=== PATIENT | male | born 1975 | race Caucasian/White ===

== ENCOUNTER 2024-12-07 09:51 | Emergency (ER) | payer MEDICARE, SELFPAY ==
--- NOTE | 2024-12-07 09:57 | PC.NURSE ---
dr muller at bedside
[2024-12-07 09:58] VITALS: BP 139/91; PULSE 89; RESP 13; TEMP 36.7; O2SAT 96; BMI 32.2
--- NOTE | 2024-12-07 10:03 | XR_ITS ---
FINAL REPORT CLINICAL HISTORY: COPD exacerbation, shortness of breath FINDINGS: PA and lateral views of the chest are obtained. There is no prior exam for comparison. The cardiac and mediastinal silhouettes are within normal limits. There is bronchial wall thickening suggesting acute bronchitis. The lungs are otherwise clear. There is no pleural effusion, pneumothorax, or acute osseous abnormality. IMPRESSION: Bronchial wall thickening suggesting acute bronchitis. Reviewed, Interpreted and Dictated by Henny Allen MD Transcribed by Iveth Bernard Authenticated and [facility]
--- NOTE | 2024-12-07 10:05 | HMH.EDGENADL ---
Discharge Plan Disposition Patient Disposition: Home, Self-Care Prescriptions Prescriptions: New ipratropium-albuterol 0.5 mg-3 mg(2.5 mg base)/3 mL solution for nebulization 3 ml inhalation Q4H PRN (Reason: shortness of breath) Qty: 180 2RF Rx Instructions: until breathing returns to target peak flow/parameters prednisone 20 mg tablet 40 mg PO DAILY 5 Days Qty: 10 0RF nicotine 14 mg/24 hr patch 24 hour 1 patch transdermal DAILY Qty: 28 0RF doxycycline monohydrate 100 mg capsule 100 mg PO BID 5 Days Qty: 10 0RF (DME) nebulizer and compressor Device See Rx Instructions .Route Qty: 1 0RF Rx Instructions: As directed (DME) nebulizer and compressor Device See Rx Instructions .Route Qty: 1 0RF Rx Instructions: As directed No Action rosuvastatin [Crestor] 20 mg tablet 20 mg PO DAILY Qty: 30 2RF aspirin [Adult Aspirin Regimen] 81 mg tablet,delayed release (DR/EC) 81 mg PO DAILY Qty: 30 2RF losartan 100 mg tablet 100 mg PO DAILY Qty: 30 2RF albuterol sulfate 90 mcg/actuation HFA aerosol inhaler 2 puff inhalation Q4-6H PRN (Reason: shortness of breath or wheezing) Qty: 8.5 0RF Referrals Follow up/Referrals: Barbara Dawn APRN [Primary Care Provider] - See instructions Activity Restrictions/Add. Instructions Additional Instructions/Restrictions: Call your family doctor to establish care for this visit to the emergency department and schedule follow-up within 48 hours to ensure improvement. If you have any worsening of your condition or any other concerning signs or symptoms, return to the emergency department or your primary care doctor for further evaluation. Clinical Impressions Clinical Impression: Acute exacerbation of chronic obstructive pulmonary disease, Right upper lobe pneumonia Print Language Print Language: Latvian Discharge ED Provider: Iván Sood General Adult HPI General Chief complaint: Upper Respiratory Infection Stated complaint: flu expsoure ba vomiting st Time Seen by Provider: 12/07/24 09:56 Mode of Arrival: Ambulatory Source of Information: Patient Limitations: No Limitations Description of Symptoms (Recalled from ER Triage Doc. by RN): pt presents to ED with c/o not feeling well . pt reports he had flu exposure by his son. pt reports body aches, nausea, vomitting. symptoms began day before yesterday. History of Present Illness HPI narrative: Please note that above description of symptoms, in this electronic medical record under categorization of recalled from ER triage doctor by RN are reflective of an initial nursing assessment, however, is not reflective of my full history and physical exam that was personally taken and clarified. Consequentially, this preceding description of symptoms, which may include the patient's categorized chief complaint in the EMR, do not reflect my personal clinical impression, and the ultimate description of history of present illness and patient stated complaints should be deferred to this section of the note. Unless stated otherwise or congruent with this section of the note, additional signs, symptoms, or incongruence should be interpreted as inaccurate with my clinical impression. Related Data Previous Rx's ?Medication ?Instructions ?Recorded albuterol sulfate 90 mcg/actuation 2 puff inhalation Q4-6H PRN 11/14/24 aerosol inhaler shortness of breath or wheezing #8.5 grams aspirin 81 mg tablet,delayed 81 mg PO DAILY #30 tabs 11/26/24 release (Adult Aspirin Regimen) losartan 100 mg tablet 100 mg PO DAILY #30 tabs 11/26/24 rosuvastatin 20 mg tablet (Crestor) 20 mg PO DAILY #30 tabs 11/26/24 doxycycline monohydrate 100 mg 100 mg PO BID 5 days #10 caps 12/07/24 capsule ipratropium 0.5 mg-albuterol 3 mg 3 ml inhalation Q4H PRN shortness 12/07/24 (2.5 mg base)/3 mL nebulization of breath #180 mL soln nebulizer and compressor #1 ea 12/07/24 nebulizer and compressor #1 ea 12/07/24 nicotine 14 mg/24 hr daily 1 patch transdermal DAILY #28 ea 12/07/24 transdermal patch prednisone 20 mg tablet 40 mg (2 x 20 mg) PO DAILY 5 days 12/07/24 #10 tabs Allergies Allergy/AdvReac Type Severity Reaction Status Date / Time No Known Allergies Allergy Verified 12/07/24 10:04 [facility] Disclaimer: The information contained in this section may have been updated after the patient was seen, as this information can be updated by other users. Medical History Anxiety with depression Family history of early CAD Chest pain Recurrent kidney stones Hypertension Epilepsy COPD (chronic obstructive pulmonary disease) Family History Other Coronary artery disease Diabetes Hypertension Social History Smoking Status: Current every day smoker tobacco type: cigarettes alcohol intake: never substance use type: marijuana current occupational status: disabled Travel in the last 8 weeks: None Have you lived/traveled outside US in past 30 days?: No Contact w/someone who lives/traveled outside US past 30 days?: No Exposure to someone with infectious disease in past 14 days?: Yes Do you have a fever (greater than 100.4 F or 38 C)?: No Have you tested positive for COVID-19: No Exposed to someone with COVID-19 in past 14 days?: No Do you have a sore throat?: Yes Do you have a cough?: Yes Do you have any weakness?: No Do you have any diarrhea?: No Are you experiencing any unusual bleeding?: No Do you have any muscle aches/pain?: No Do you have any abdominal pain?: No Are you experiencing loss of taste or smell?: No ROS Obtained: Yes All systems reviewed & no additional complaints except as documented Physical Exam General General appearance: alert Head Head exam: atraumatic and normocephalic Eye Eye exam: Present normal appearance, PERRL and EOMI Neck Neck exam: Present trachea midline Chest Chest inspection: Present normal inspection and symmetric chest wall rise Respiratory Respiratory exam: Present wheezes; Absent respiratory distress, stridor, accessory muscle use or prolonged expiratory phase Cardiovascular Cardiovascular exam: Present regular rate, normal rhythm and other (Pulses equal and symmetric in upper and lower extremities) Abdominal Exam Abdominal exam: Present soft; Absent distention, tenderness or pulsatile mass Extremities Exam Extremities exam: Absent edema Neurological Exam Neurological exam: Present alert, oriented X3 and CN II-XII intact Skin Skin exam: Present warm and dry; Absent cyanosis, diaphoresis or pallor Medical Decision Making Medical Records Medical records reviewed: Yes I reviewed the patient's medical records. Screening: Per USPSTF and CDC recommendations, given the prevalence of disease in our region, it is our hospital?s policy to screen for HIV and viral Hepatitis for all patients aged 18 and over and those with ongoing risk factors. [place] Inquiry Pt receiving controlled substance: No [place] was queried for this patient: No Vital Signs: 12/07/24 09:58 12/07/24 10:15 Temperature 98.0 F Temperature Source Oral Pulse Rate 69 Pulse Rate [Left Radial] 89 Respiratory Rate 13 Blood Pressure 128/84 Blood Pressure [Right Arm] 139/91 H Blood Pressure Mean [Right Arm] 107 02 Sat by Pulse Oximetry 96 99 Oxygen Delivery Method Room Air Orders (Tests/Meds): ED MEDICATIONS Discontinued Medications Generic Name Dose Route Start Last Admin Trade Name Danica PRN Reason Stop Dose Admin Albuterol/Ipratropium 9 ml 12/07/24 10:03 12/07/24 10:07 Ipratropium/Albuterol 3 Ml Neb IH 12/07/24 10:04 9 ml ONCE ONE Administration Dexamethasone 10 mg 12/07/24 10:03 12/07/24 10:07 Dexamethasone 4mg Tablet PO 12/07/24 10:04 10 mg ONCE ONE Administration Doxycycline Hyclate 100 mg 12/07/24 10:03 12/07/24 10:06 Doxycycline Hycl 100 Mg Tablet PO 12/07/24 10:04 100 mg ONCE ONE Administration ORDERS Category Date Time Status CXR 2 view (NOT portable) [XR chest 2V] Stat Exams 12/07/24 10:03 Taken Medical Decision Narrative: 49-year-old male with history of COPD still smoking about a pack a day presenting with shortness of breath and cough. Patient states that he has been getting worse for about 2 days. Started feeling short of breath, now having new cough and the cough is newly productive of greenish-yellow sputum. No fevers or chills, no bodyaches, but mild shortness of breath. No chest pain. No lower extremity swelling. Otherwise feeling well. Does not have inhalers or nebulizer machines at home. Came in for further evaluation. History was obtained via conversation with patient and significant other. On arrival, patient hemodynamically stable, alert, oriented x4, appropriate, GCS 15, moving all extremities spontaneously, pupils equal and reactive to light. Full physical exam performed and significant for very clinically well-appearing male speaking in full sentences and in no acute distress. Lungs with diffuse bilateral wheezes heard throughout expiration. Cardiac exam normal, no lower extremity edema. No focal wheezes or inspiratory sounds. Differential includes COPD exacerbation, bronchitis, pneumonia, pneumothorax, less likely PE, ACS, CO, CHF among others,. Patient placed on continuous cardiac monitoring and continuous pulse ox with initial blood pressure 139/91, heart rate 89, saturation 96% on room air. Patient was given DuoNebs, Decadron for symptomatic management and correction of underlying abnormalities. Workup independently interpreted and significant for right upper lobe pneumonia with developing. Labs considered, but patient feeling much better on reevaluation and feels okay being discharged. No increased work of breathing on my evaluation and lungs sound remarkably better. Smoking cessation discussion was had, patient voiced his understanding and would like to have patches sent to the pharmacy. Given patient presentation, workup, history, this most likely represents COPD exacerbation in the setting of pneumonia. 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 Because patient at baseline without signs or symptoms of clinical decompensation, deemed appropriate for discharge. Results were relayed to patient who voiced understanding and were agreeable to outpatient management and follow up. I discussed my clinical impression with patient and answered all questions. At this time, the evidence for any other entities in the differential is insufficient to warrant any further testing or ED observation. This was explained as well. Advisory was given that persistent or worsening symptoms require further evaluation. I confirmed the understanding of this discussion. Industrial Maintenance Manager disclaimer Much of this encounter note is an electronic software sales manager spoken language to printed text. Electronic software sales manager of the spoken language may permit errors. Although I have reviewed the note, some errors may still exist. Procedures Smoking Cessation Time Spent Discussing Smoking Cessation w/Patient (min): 10 Patient Acknowledges Need for Cessation: Yes Critical Care Critical Care Time Critical Care Time: No
[2024-12-07] MEDS: DOXYCYCLINE HYCL 100 MG TABLET PO (10:06)
[2024-12-07] MEDS: DEXAMETHASONE 4MG TABLET 10 MG PO (10:07)
[2024-12-07] MEDS: IPRATROPIUM/ALBUTEROL 3 ML NEB 9 ML IH (10:07)
[2024-12-07 10:15] VITALS: BP 128/84; PULSE 69; O2SAT 99
[2024-12-07 11:30] VITALS: BP 149/87; PULSE 88; RESP 18; TEMP 36.7; O2SAT 95
== END 2024-12-07 11:30 | disposition home or self-care (01) ==
PROVIDERS: Emergency Provider Emergency Medicine; PCP Nurse Practitioner
DX: J44.1 Chronic obstructive pulmonary disease with (acute) exacerbation (principal); J18.9 Pneumonia, unspecified organism; R06.02 Shortness of breath; R05.9 Cough, unspecified; R11.2 Nausea with vomiting, unspecified; M79.10 Myalgia, unspecified site; F17.210 Nicotine dependence, cigarettes, uncomplicated; Z20.828 Contact with and (suspected) exposure to other viral communicable diseases
CPT/HCPCS: 71046; 99284; J7620; J8540

== ENCOUNTER 2024-12-11 18:10 | Outpatient (CLI) | payer MEDICARE, SELFPAY ==
[2024-12-11 18:18] LABS: Basophils % 0.5 % (0.1-2.0); Eosinophils % 0.2 % (0.1-12.0); Hemoglobin 17.8 g/dL (14.1-18.0); Lymphocytes # 2.4 K/mm3 (0.7-4.5); Lymphocytes % 42.6 % (10-50); Mean Corpuscular HGB Conc 34.2 g/dL (31.8-35.4); Mean Corpuscular Hemoglobin 30.9 pg (27.0-31.2); Mean Corpuscular Volume 90.3 fl (80-94); Mean Platelet Volume 10.9 fl (7.4-10.4); Monocytes # 0.5 K/mm3 (0.1-1.0); Monocytes % 7.9 % (1.7-9.3); Neutrophils # 2.8 K/mm3 (1.8-7.8); Neutrophils % 48.5 % (37.0-80.0); Platelet Count 235 K/mm3 (142-424); Red Blood Count 5.76 M/mm3 (4.60-6.20); Red Cell Distribution Width 12.9 % (11.5-17.5); White Blood Count 5.7 K/mm3 (4.8-10.8)
[2024-12-11 18:35] LABS: Microalbumin/Creatinine Ratio 17.3
[2024-12-11 18:38] LABS: Creatinine,Urine Random 308 mg/dL (Not Estab.)
[2024-12-11 18:43] LABS: Hemoglobin A1C 4.8 % (4.0-6.0)
[2024-12-11 18:49] LABS: Alanine Aminotransferase 30 U/L (12-78); Albumin Level 3.7 g/dl (3.5-5.0); Albumin/Globulin Ratio 1.6 (1.1-1.8); Alkaline Phosphatase 91 U/L (38-126); Aspartate Amino Transferase 28 U/L (17-59); Bilirubin,Total 0.4 mg/dl (0.2-1.3); Blood Urea Nitrogen 12 mg/dl (9-20); Calcium 9.1 mg/dl (8.4-10.2); Carbon Dioxide 31 mmol/L (22.0-30.0); Chloride 107 mmol/L (98-107); Chol/HDL Ratio 3.9 (1-3.5); Cholesterol 109 mg/dl (140-200); Estimated Glomerular Filt Rate 90 ml/min (>60); GFR (African American) 109 ML/MIN (>60); Globulin 2.3 g/dL (1.3-3.2); Glucose 93 mg/dl (74-100); HDL Cholesterol 28 mg/dl (40-60); Sodium 138 mmol/L (136-145); Triglycerides 105 mg/dl (30-150); VLDL Cholesterol 21 mg/dL (0-40)
[2024-12-11 19:01] LABS: Direct LDL Cholesterol 50.53 mg/dL (100-129)
[2024-12-11 19:21] LABS: Prostate Specific Ag Screen 0.9 ng/ml (0.0-4.0); Thyroid Stimulating Hormone 1.04 uIU/mL (0.465-4.68)
[2024-12-11 19:40] LABS: Vitamin B12 704 pg/mL (239-931)
== END 2024-12-11 23:59 | disposition home or self-care (01) ==
LOC: LAB.DROPOF 18:11
PROVIDERS: Nurse Practitioner; PCP Nurse Practitioner Acute Care; Visit Provider Nurse Practitioner Acute Care
DX: I10 Essential (primary) hypertension (principal); R07.9 Chest pain, unspecified; G40.909 Epilepsy, unspecified, not intractable, without status epilepticus; F41.8 Other specified anxiety disorders
CPT/HCPCS: 80053; 80061; 82043; 82570; 82607; 83036; 84443; 85025; G0103

== ENCOUNTER 2024-12-15 18:50 | Emergency (ER) | payer MEDICARE, SELFPAY ==
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
[2024-12-15 19:01] VITALS: BP 144/99; PULSE 85; RESP 20; TEMP 37.2; O2SAT 98; BMI 31.6
--- NOTE | 2024-12-15 19:15 | PC.NURSE ---
Pt awake alert and oriented Skin pink warm and dry Resp full and easy Speech clear and appropriate Report given to Yuly GOMEZ
--- NOTE | 2024-12-15 19:17 | PC.NURSE ---
rounded on pt at this time. s/o at bedside. no needs voiced. call light in reach
[2024-12-15] MEDS: LIDOCAINE 1% 20ML MDV 20 ML IJ (19:34)
[2024-12-15] MEDS: BUPIVACAINE 0.25% 10ML INJ 5 MG IJ (19:34)
[2024-12-15 20:02] VITALS: BP 120/89; PULSE 74; RESP 18; TEMP 37.2; O2SAT 95
== END 2024-12-15 20:03 | disposition home or self-care (01) ==
PROVIDERS: Emergency Provider Student in an Organized Health Care Education/Training Program; PCP Nurse Practitioner
DX: K08.89 Other specified disorders of teeth and supporting structures (principal)
CPT/HCPCS: 64400; 99283

== ENCOUNTER 2024-12-23 08:15 | Emergency (ER) | payer MEDICARE, SELFPAY ==
[2024-12-23] VITALS (7 sets, daily range): BP systolic 128–192; BP diastolic 85–114; PULSE 55–86; RESP 12–21; TEMP 36.6–37.1; O2SAT 96–98; BMI 31.7
--- NOTE | 2024-12-23 08:13 | ECG_ITS ---
APPROVED REPORT Exam: Resting ECG HR:69 bpm ECG Measurements Heart Rate 69 AXES DC 139 P 54 QRSd 105 QRS -36 QT 366 T 52 QTc 385 Conclusion SINUS RHYTHM LEFT AXIS DEVIATION [QRS AXIS < -30] PATTERN CONSISTENT WITH PULMONARY DISEASE Electronically signed by : KEELY WALSH, 12/23/2024 15:05:30
[2024-12-23 08:30] LABS: Basophils # 0.1 K/mm3 (0-0.2); Basophils % 0.5 % (0.1-2.0); Eosinophils # 0.1 K/mm3 (0.0-0.4); Eosinophils % 0.9 % (0.1-12.0); Hematocrit 48.5 % (42.0-52.0); Hemoglobin 16.5 g/dL (14.1-18.0); Lymphocytes # 2.2 K/mm3 (0.7-4.5); Lymphocytes % 21.4 % (10-50); Mean Corpuscular Hemoglobin 30.6 pg (27.0-31.2); Mean Corpuscular Volume 89.8 fl (80-94); Mean Platelet Volume 10.3 fl (7.4-10.4); Monocytes # 0.7 K/mm3 (0.1-1.0); Monocytes % 6.4 % (1.7-9.3); Neutrophils # 7.2 K/mm3 (1.8-7.8); Neutrophils % 70.7 % (37.0-80.0); Platelet Count 286 K/mm3 (142-424); Red Cell Distribution Width 12.8 % (11.5-17.5); White Blood Count 10.2 K/mm3 (4.8-10.8)
--- NOTE | 2024-12-23 08:32 | PC.NURSE ---
dr guerrier at bedside
[2024-12-23] MEDS: ASPIRIN 81MG CHEWABLE TABLET 243 MG PO (08:33)
--- NOTE | 2024-12-23 08:36 | CT_ITS ---
PROCEDURE INFORMATION: Exam: CTA Chest With Contrast Exam date and time: 12/23/2024 7:56 AM Age: 49 years old Clinical indication: Pain; Radiating; Additional info: Chest pain TECHNIQUE: Imaging protocol: Computed tomographic angiography of the chest with contrast. Exam focused on the arteries. 3D rendering (Not supervised by radiologist): MIP and/or 3D reconstructed images were created by the technologist. Radiation optimization: All CT scans at this facility use at least one of these dose optimization techniques: automated exposure control; mA and/or kV adjustment per patient size (includes targeted exams where dose is matched to clinical indication); or iterative reconstruction. Contrast material: ISOVUE; Contrast volume: 70 ml; Contrast route: INTRAVENOUS (IV); COMPARISON: CR XR CHEST 2V 12/07/2024 10:28 AM FINDINGS: Pulmonary arteries: No visible pulmonary emboli. Aorta: The thoracic aorta is normal. Lungs: No pulmonary infiltrates or suspicious pulmonary nodules identified. Pleural spaces: Unremarkable. No pneumothorax. No pleural effusion. Heart: The heart is normal in size. No pericardial effusion. Coronary arteries: Mild calcified coronary artery disease. Lymph nodes: Small mediastinal lymph nodes which do not reach pathologic size criteria. Liver: Simple appearing 2.6 cm hepatic cyst. Gallbladder and biliary ducts: Cholelithiasis but no suggestion of cholecystitis. Bones/joints: Unremarkable. No acute fracture. Soft tissues: Unremarkable. IMPRESSION: 1. No evidence of PE and the thoracic aorta is normal. 2. No acute pulmonary infiltrates or suspicious pulmonary nodules identified. 3. Cholelithiasis but no CT evidence of cholecystitis.
[2024-12-23 08:37] LABS: Alanine Aminotransferase 19 U/L (12-78); Albumin Level 4.1 g/dl (3.5-5.0); Albumin/Globulin Ratio 1.5 (1.1-1.8); Alkaline Phosphatase 87 U/L (38-126); Aspartate Amino Transferase 25 U/L (17-59); Bilirubin,Total 0.2 mg/dl (0.2-1.3); Blood Urea Nitrogen 9 mg/dl (9-20); Calcium 9.3 mg/dl (8.4-10.2); Carbon Dioxide 31 mmol/L (22.0-30.0); Chloride 107 mmol/L (98-107); Creatinine Clearance Estimated 121 mL/min (50-200); Estimated Glomerular Filt Rate 80 ml/min (>60); GFR (African American) 97 ML/MIN (>60); Globulin 2.7 g/dL (1.3-3.2); Glucose 114 mg/dl (74-100); Sodium 143 mmol/L (136-145); Total Protein,Serum 6.8 g/dl (6.3-8.2)
[2024-12-23 08:48] LABS: Lipase 79 U/L (23-300)
[2024-12-23 08:50] LABS: Troponin I < 0.01 ng/ml (0.00-0.034)
--- NOTE | 2024-12-23 08:59 | [facility].EDCP ---
Discharge Plan Disposition Patient Disposition: Home, Self-Care Condition: Good Prescriptions Prescriptions: New omeprazole 40 mg capsule,delayed release(DR/EC) 40 mg PO DAILY Qty: 30 0RF No Action rosuvastatin [Crestor] 20 mg tablet 20 mg PO DAILY Qty: 30 2RF aspirin [Adult Aspirin Regimen] 81 mg tablet,delayed release (DR/EC) 81 mg PO DAILY Qty: 30 2RF losartan 100 mg tablet 100 mg PO DAILY Qty: 30 2RF albuterol sulfate 90 mcg/actuation HFA aerosol inhaler 2 puff inhalation Q4-6H PRN (Reason: shortness of breath or wheezing) Qty: 8.5 0RF olanzapine 5 mg tablet 5 mg PO HS Qty: 30 2RF Anoro Ellipta 62.5-25 mcg/actuation blister with device 1 inh inhalation DAILY Qty: 60 2RF carbamazepine 200 mg tablet extended release 12 hr 200 mg PO BID Qty: 60 2RF hydroxyzine pamoate 25 mg capsule 25 - 50 mg PO TID PRN (Reason: anxiety) Qty: 90 2RF oxycodone 5 mg tablet 5 mg PO Q6H PRN (Reason: pain) Qty: 12 0RF amoxicillin 875 mg tablet 875 mg PO BID 7 Days Qty: 20 0RF chlorhexidine gluconate [Peridex] 0.12 % mouthwash 15 ml buccal BID Qty: 15 0RF ipratropium-albuterol 0.5 mg-3 mg(2.5 mg base)/3 mL solution for nebulization 3 ml inhalation Q4H PRN (Reason: shortness of breath) Qty: 180 2RF Rx Instructions: until breathing returns to target peak flow/parameters prednisone 20 mg tablet 40 mg PO DAILY 5 Days Qty: 10 0RF nicotine 14 mg/24 hr patch 24 hour 1 patch transdermal DAILY Qty: 28 0RF doxycycline monohydrate 100 mg capsule 100 mg PO BID 5 Days Qty: 10 0RF (DME) nebulizer and compressor Device See Rx Instructions .Route Qty: 1 0RF Rx Instructions: As directed (DME) nebulizer and compressor Device See Rx Instructions .Route Qty: 1 0RF Rx Instructions: As directed Referrals Follow up/Referrals: Barbara Dawn APRN [Primary Care Provider] - See instructions Talon Limon MD [Staff Physician] - See instructions Activity Restrictions/Add. Instructions Additional Instructions/Restrictions: You were evaluated in the emergency department today. At this time, your workup is reassuring. It does not look like you have any acute life-threatening pathology as a cause of your chest pain. Please follow-up very closely with your primary care provider as well as with cardiology given your risk factors. 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 You may also take Tylenol as needed at home for pain. Return to the emergency department for new or worsening symptoms. Clinical Impressions Clinical Impression: Chest pain Stand Alone Forms Stand Alone Forms: Work/School Release Instructions Patient Instructions: DI for Atypical Chest Pain Print Language Print Language: Luxembourgish Discharge ED Provider: Tracie Juarez General Chief Complaint: Chest Pain Stated Complaint: Chest Pain Time Seen by Provider: 12/23/24 08:16 Mode of Arrival: Wheelchair Source of Information: Patient Description of Symptoms (Recalled from ER Triage Doc. by RN): Patient is accompanied by another male. The male individual presented to registration and stated someone needed assistance out of a vehicle. I immediatley responded to the patient's vehicle and hound him in the passenger seat. Patient was alert and oriented. Reported chest pain that started at 0400 this morning. Patient then stood and transferred himself to the wheelchair. Patient states he started having substernal chest pain which started at 0400 this morning. States he took one 81mg ASA prior to arrival. Endorses nausea x2 days. Denies vomiting. States the pain is a 9/10 radiating to his back. Also endorses right arm pain and numbness. States the pain has increased in intensity resulting in his presentation to the ED. Immediately bedded. History of Present Illness HPI narrative: This patient is a 49-year-old male with a history of hypertension, anxiety/depression, COPD who has family history of early CAD presenting to the emergency department for evaluation with concern for chest pain. Patient states that around 4:00 this morning, he started having epigastric abdominal pain that then started radiating up into his chest around 4:00 this morning. He took 81 mg of aspirin but it did not help. He states is the worst pain he has had in his life and felt like he was having a heart attack. He also notes associated shortness of breath and nausea. Of note, he states that he just finished antibiotics to treat pneumonia. Related Data Previous Rx's ?Medication ?Instructions ?Recorded albuterol sulfate 90 mcg/actuation 2 puff inhalation Q4-6H PRN 11/14/24 aerosol inhaler shortness of breath or wheezing #8.5 grams aspirin 81 mg tablet,delayed 81 mg PO DAILY #30 tabs 11/26/24 release (Adult Aspirin Regimen) losartan 100 mg tablet 100 mg PO DAILY #30 tabs 11/26/24 rosuvastatin 20 mg tablet (Crestor) 20 mg PO DAILY #30 tabs 11/26/24 doxycycline monohydrate 100 mg 100 mg PO BID 5 days #10 caps 12/07/24 capsule ipratropium 0.5 mg-albuterol 3 mg 3 ml inhalation Q4H PRN shortness 12/07/24 (2.5 mg base)/3 mL nebulization of breath #180 mL soln nebulizer and compressor #1 ea 12/07/24 nebulizer and compressor #1 ea 12/07/24 nicotine 14 mg/24 hr daily 1 patch transdermal DAILY #28 ea 12/07/24 transdermal patch prednisone 20 mg tablet 40 mg (2 x 20 mg) PO DAILY 5 days 12/07/24 #10 tabs carbamazepine 200 mg 200 mg PO BID #60 tabs 12/13/24 tablet,extended release,12 hr hydroxyzine pamoate 25 mg capsule 25 - 50 mg (1 - 2 x 25 mg) PO TID 12/13/24 PRN anxiety #90 caps olanzapine 5 mg tablet 5 mg PO HS #30 tabs 12/13/24 umeclidinium 62.5 mcg-vilanterol 1 inh inhalation DAILY #60 ea 12/13/24 25 mcg/actuation powdr for inhalation (Anoro Ellipta) amoxicillin 875 mg tablet 875 mg PO BID 7 days #20 tabs 12/15/24 chlorhexidine gluconate 0.12 % 15 ml buccal BID #15 mL 12/15/24 mouthwash (Peridex) oxycodone 5 mg tablet 5 mg PO Q6H PRN pain #12 tabs 12/15/24 omeprazole 40 mg capsule,delayed 40 mg PO DAILY #30 caps 12/23/24 release Allergies Allergy/AdvReac Type Severity Reaction Status Date / Time No Known Allergies Allergy Verified 12/11/24 08:32 [facility] Disclaimer: The information contained in this section may have been updated after the patient was seen, as this information can be updated by other users. Medical History Anxiety with depression Family history of early CAD Chest pain Recurrent kidney stones Hypertension Epilepsy COPD (chronic obstructive pulmonary disease) Family History Other Coronary artery disease Diabetes Hypertension Social History Smoking Status: Current every day smoker tobacco type: cigarettes alcohol intake: never substance use type: marijuana current occupational status: disabled Travel in the last 8 weeks: None Have you lived/traveled outside [place] in past 30 days?: No Contact w/someone who lives/traveled outside [place] past 30 days?: No Exposure to someone with infectious disease in past 14 days?: No Do you have a fever (greater than 100.4 F or 38 C)?: No Have you tested positive for COVID-19: No Exposed to someone with COVID-19 in past 14 days?: No Do you have a sore throat?: No Do you have a cough?: No Do you have any weakness?: No Do you have any diarrhea?: No Are you experiencing any unusual bleeding?: No Do you have any muscle aches/pain?: No Do you have any abdominal pain?: No Are you experiencing loss of taste or smell?: No ROS Obtained: Yes All systems reviewed & no additional complaints except as documented Physical Exam General General appearance: alert and in no apparent distress Head Head exam: atraumatic and normocephalic Eye Eye exam: Present normal appearance, PERRL and EOMI ENT ENT exam: Present normal exam, normal oropharynx, mucous membranes moist and normal external ear exam Neck Neck exam: Present normal inspection, full ROM and trachea midline; Absent tenderness Chest Chest inspection: Present normal inspection and symmetric chest wall rise; Absent tenderness Respiratory Respiratory exam: Present normal lung sounds bilaterally; Absent respiratory distress, wheezes, stridor or accessory muscle use Cardiovascular Cardiovascular exam: Present regular rate and normal rhythm Abdominal Exam Abdominal exam: Present soft; Absent distention, tenderness or guarding Extremities Exam Extremities exam: Present normal inspection, full ROM and normal capillary refill; Absent tenderness or edema Back Exam Back exam: Present normal inspection and full ROM; Absent tenderness Neurological Exam Neurological exam: Present alert, oriented X3, CN II-XII intact and normal gait; Absent motor sensory deficit Psychiatric Psychiatric exam: Present normal affect and normal mood Skin Skin exam: Present warm and dry HEART Score HEART Score HEART Score assessment performed?: Yes History (anamnesis): Slightly suspicious ECG: Normal Age: 45-65 years Risk factors: 3 or more risk factors Troponin: </= normal limit HEART Score: 3 Critical Care Critical Care Time Critical Care Time: No Medical Decision Making [place] Inquiry Pt receiving controlled substance: No Vital Signs Vital Signs: 12/23/24 08:15 12/23/24 08:30 12/23/24 08:32 Temperature 97.9 F Temperature Source Oral Pulse Rate 77 86 Pulse Rate [Radial] 73 Respiratory Rate 14 19 21 Blood Pressure 192/114 H 180/107 H Blood Pressure [R Arm] 171/100 H Blood Pressure Mean [R Arm] 123 Blood Pressure Source [R Arm] Automatic Cuff 02 Sat by Pulse Oximetry 97 98 97 Oxygen Delivery Method Room Air Room Air Room Air 12/23/24 09:31 12/23/24 10:00 12/23/24 10:30 Temperature Temperature Source Pulse Rate 71 77 60 Pulse Rate [Radial] Respiratory Rate 12 12 12 Blood Pressure 148/85 H 128/86 139/97 H Blood Pressure [R Arm] Blood Pressure Mean [R Arm] Blood Pressure Source [R Arm] 02 Sat by Pulse Oximetry 96 96 98 Oxygen Delivery Method Room Air Room Air Room Air 12/23/24 11:55 Temperature 98.7 F Temperature Source Pulse Rate 55 L Pulse Rate [Radial] Respiratory Rate 20 Blood Pressure 163/94 H Blood Pressure [R Arm] Blood Pressure Mean [R Arm] Blood Pressure Source [R Arm] 02 Sat by Pulse Oximetry Oxygen Delivery Method Lab Data Labs: Lab Results 12/23/24 08:17: WBC 10.2, RBC 5.40, Hgb 16.5, Hct 48.5, MCV 89.8, MCH 30.6, MCHC 34.0, RDW 12.8, Plt Count 286, MPV 10.3, Neut % (Auto) 70.7, Lymph % (Auto) 21.4, Cloud % (Auto) 6.4, Eos % (Auto) 0.9, Baso % (Auto) 0.5, Neut # (Auto) 7.2, Lymph # (Auto) 2.2, Cloud # (Auto) 0.7, Eos # (Auto) 0.1, Baso # (Auto) 0.1, Sodium 143, Potassium 4.0, Chloride 107, Carbon Dioxide 31 H, Anion Gap 9.0, BUN 9, Creatinine 1.00, Estimated Creat Clear 121, Estimated GFR 80, Est GFR ( Amer) 97, Glucose 114 H, Calcium 9.3, Total Bilirubin 0.2, AST 25, ALT 19, Alkaline Phosphatase 87, Troponin I < 0.01, Total Protein 6.8, Albumin 4.1, Globulin 2.7, Albumin/Globulin Ratio 1.5, Lipase 79 12/23/24 10:45: Troponin I < 0.01 12/23/24 08:17 12/23/24 08:17 Response Orders (Tests/Meds): ED MEDICATIONS Discontinued Medications Generic Name Dose Route Start Last Admin Trade Name Freq PRN Reason Stop Dose Admin Acetaminophen 1,000 mg 12/23/24 08:36 12/23/24 09:07 Acetaminophen 1,000mg/100ml Vial IV 12/23/24 08:37 1,000 mg ONCE ONE Administration Aspirin 243 mg 12/23/24 08:20 12/23/24 08:33 Aspirin 81mg Chewable Tablet PO 12/23/24 08:21 243 mg ONCE ONE Administration Belladonna Alkaloids 60 ml 12/23/24 08:36 12/23/24 09:07 Belladonna Alkaloids 60 Ml Ml PO 12/23/24 08:37 60 ml ONCE ONE Administration Iopamidol 70 ml 12/23/24 09:03 12/23/24 09:03 Iopamidol-370 (76%);100ml Bottle IV 12/23/24 09:04 70 ml ONCE ONE Administration Nitroglycerin 0.4 mg 12/23/24 08:20 Nitroglycerin 0.4mg Sl Tablet SL 12/24/24 08:20 Q5MINP PRN Chest Pain Sodium Chloride 10 ml 12/23/24 09:03 12/23/24 09:03 Sodium Chloride 0.9% 10ml Syr (Rad Only) IV 12/23/24 09:04 10 ml ONCE ONE Administration Sodium Chloride 50 ml 12/23/24 09:03 12/23/24 09:03 0.9 % Sodium Chloride 50 Ml Vial IV 12/23/24 09:04 50 ml ONCE ONE Administration ORDERS Category Date Time Status CT angio chest PE protocol Stat Cat Scan 12/23/24 08:36 Completed Complete Blood Count Auto Diff Stat Lab 12/23/24 08:17 Completed Comprehensive Metabolic Panel Stat Lab 12/23/24 08:17 Completed Lipase Stat Lab 12/23/24 08:17 Completed Troponin I Stat Lab 12/23/24 14:20 Completed ECG Data Tracing #1: Attestation: I reviewed this ECG and interpreted as documented below: ECG Narrative: Normal sinus rhythm with a ventricular rate of [address] changes concerning for STEMI. Left axis deviation. Normal intervals. ECG initial impression date: 12/23/24 ECG initial impression time: 08:15 MDM Narrative Medical Decision Narrative: In summary, this patient is a 49-year-old male presenting to the Emergency Department for evaluation of chest pain. Differential diagnoses considered include but are not limited to ACS, dysrhythmia, GERD, esophageal spasms, aortic dissection, PE, pancreatitis. Ruling out the most morbid conditions drove assessment. It should be noted patient's history includes obesity, hypertension, tobacco use which are not at goal therapy. This complicates all aspects of care by increasing patient's risk for morbidity. I reviewed patient's past medical records and noted prior evaluation by cardiology 11/26/2024 with concern for chest pains. He was started on losartan for hypertension at that time as well as 81 mg aspirin, Crestor. They had ordered a echo and a Myoview to rule out ischemia. It does not look like patient has yet had these performed.. On exam, the patient is lying in bed in no acute distress. He is hypertensive but notes that he has not taken his blood pressure medications this morning. He is nontachycardic, not tachypneic, oxygen saturation is normal. Cardiopulmonary and abdominal exams are reassuring. Workup included CBC, CMP, lipase, troponin, EKG, CTA of the chest. I independently interpreted CT scan prior to the radiologist read and noted no obvious aortic dissection, no large PE. I do see that he has a very large gallstone without secondary findings concerning for cholecystitis. Please see their read for final interpretation. Labs were obtained that demonstrated reassuring CBC with no significant leukocytosis or anemia, reassuring chemistry, negative initial troponin. Patient was given GI cocktail, oral aspirin, IV Tylenol for symptomatic improvement. On reassessment, patient had good improvement after administration of interventions above. He is feeling better and has normal vitals on cardiac telemetry. CT scan not concerning for aortic dissection or PE on my independent interpretation. Please see radiology read for final interpretation. CBC reassuring, chemistry reassuring with negative troponin x 2. Ultimately, I feel that we have excluded acute life-threatening pathology as a cause of patient's chest pain and he is appropriate for discharge home with close follow-up as an outpatient. He was given strict return precautions if she has cardiology follow-up tomorrow. I prescribed PPI given that the patient has had improvement after GI cocktail in case it could be esophageal in nature
[2024-12-23] MEDS: IOPAMIDOL-370 (76%);100ML BOTTLE 70 ML IV (09:03)
[2024-12-23] MEDS: SODIUM CHLORIDE 0.9% 10ML SYR (RAD ONLY) 10 ML IV (09:03)
[2024-12-23] MEDS: 0.9 % SODIUM CHLORIDE 50 ML VIAL IV (09:03)
[2024-12-23] MEDS: BELLADONNA ALKALOIDS 60 ML ML PO (09:07)
[2024-12-23] MEDS: ACETAMINOPHEN 1,000MG/100ML VIAL 1000 MG IV (09:07)
[2024-12-23 11:37] LABS: Troponin I < 0.01 ng/ml (0.00-0.034)
== END 2024-12-23 11:57 | disposition home or self-care (01) ==
PROVIDERS: Emergency Provider Emergency Medicine; PCP Nurse Practitioner
DX: R07.9 Chest pain, unspecified (principal)
CPT/HCPCS: 71275; 80053; 83690; 84484; 85025; 93005; 96374; 99285; J0131; Q9967